=== PATIENT | female | born 1965 | race Caucasian/White ===

== ENCOUNTER 2021-06-04 16:07 | Emergency (ER) | payer MEDICAID ==
[~2021-06-04] VITALS: Ht 160 cm; Wt 102.0 kg
[2021-06-04 16:43] VITALS: BP 166/82
[2021-06-04] MEDS ORDERED: IBUP-1986 PO (20:37)
[2021-06-04] MEDS ORDERED: AMOX-101 PO (20:37)
[2021-06-04] MEDS ORDERED: amoxicillin 250mg capsule PO ONE (21:15)
[2021-06-04] MEDS ORDERED: ketorolac trometh inj. 60 MG/2 ML VIAL IM ONE (21:15)
== END 2021-06-04 21:45 | disposition home or self-care (01) ==
LOC: ER 16:08
DX: K08.89 Other specified disorders of teeth and supporting structures (principal); R22.0 Localized swelling, mass and lump, head; E11.9 Type 2 diabetes mellitus without complications; Z79.2 Long term (current) use of antibiotics
CPT/HCPCS: 96372; 99283; J1885

== ENCOUNTER 2023-12-17 14:38 | Emergency (ER) | payer MEDICAID ==
[~2023-12-17] VITALS: Ht 160 cm; Wt 104.1 kg
[~2023-12-17 14:38] MED LIST: IBUP-1986 PO
[2023-12-17 15:35] VITALS: BP 142/77; PULSE 91; RESP 16; TEMP 97.2; O2SAT 93
[2023-12-17] MEDS ORDERED: AMOX-117 PO (16:06)
[2023-12-17] MEDS: amox tr/potassium clavulanate 875/125mg TAB PO ONE (16:17)
== END 2023-12-17 16:37 | disposition home or self-care (01) ==
LOC: ER 14:38
DX: K04.7 Periapical abscess without sinus (principal); K08.89 Other specified disorders of teeth and supporting structures; E11.9 Type 2 diabetes mellitus without complications; Z79.1 Long term (current) use of non-steroidal anti-inflammatories (NSAID)
CPT/HCPCS: 99283

== ENCOUNTER 2023-12-22 17:42 | Emergency (ER) | payer OTHER, MEDICAID ==
[~2023-12-22] VITALS: Ht 160 cm; Wt 99.4 kg
[~2023-12-22 17:42] MED LIST changes: +AMOX-117 PO
[2023-12-22] MEDS: LIDOcaine 5% patch TP PRN (20:44)
[2023-12-22] MEDS: dexamethasone sod phosphate 10mg/ml inj IM STA (20:45)
[2023-12-22] MEDS: ketorolac trometh 30MG/ML vial 30 MG/ML VIAL IM ONE (20:46)
[2023-12-22 20:58] VITALS: BP 125/84; PULSE 85; RESP 17; TEMP 98.9; O2SAT 96
[2023-12-23] MEDS ORDERED: LIDOcaine 5% patch TP SCH (08:00)
== END 2023-12-22 21:01 | disposition home or self-care (01) ==
LOC: ER 17:43
DX: M75.102 Unspecified rotator cuff tear or rupture of left shoulder, not specified as traumatic (principal); E11.9 Type 2 diabetes mellitus without complications; Z79.2 Long term (current) use of antibiotics
CPT/HCPCS: 73030; 96372; 99284; J1100; J1885; A4565